=== PATIENT | female | born 1995 ===

== ENCOUNTER 2019-08-03 10:47 | Inpatient (IN) | payer OTHER ==
[~2019-08-03] VITALS: Ht 154.9 cm; Wt 79.8 kg
[2019-08-03] MEDS ORDERED: SYNTHROID100 MCG PO (11:32)
[2019-08-03] MEDS ORDERED: PRENATAL TABLE1 EACH PO (11:32)
== END 2019-08-05 17:56 | disposition home or self-care (01) | DRG 807 ==
LOC: LDR 10:47 → OB/GYN 10:47
PROVIDERS: ADMIT Obstetrics & Gynecology
PROC: 10E0XZZ Delivery of Products of Conception, External Approach (ICD-10-PCS; principal; 2019-08-03)
PROC: 4A1HXFZ Monitoring of Products of Conception, Cardiac Rhythm, External Approach (ICD-10-PCS; 2019-08-03)
PROC: 0W8NXZZ Division of Female Perineum, External Approach (ICD-10-PCS; 2019-08-03)
PROC: 3E033VJ Introduction of Other Hormone into Peripheral Vein, Percutaneous Approach (ICD-10-PCS; 2019-08-03)
DX: O99.284 Endocrine, nutritional and metabolic diseases complicating childbirth (principal); Z37.0 Single live birth; Z3A.39 39 weeks gestation of pregnancy